=== PATIENT | male | born 1965 | race Caucasian/White ===

== ENCOUNTER 2016-09-08 02:31 | Emergency (ER) | payer OTHER ==
[2016-09-08 02:55] VITALS: BP 156/74; PULSE 75; RESP 16; TEMP 98.5; O2SAT 97
--- NOTE | 2016-09-08 04:09 | ED PDOC ---
HPI: Psych/Substance Abuse Time Seen by Provider: 09/08/16 02:43 Chief Complaint (Nursing): Psychiatric Evaluation Chief Complaint (Provider): Depression History Per: Patient History/Exam Limitations: no limitations Associated Symptoms: Depression. denies: Suicidal Thoughts Additional Complaint(s): Stephan Quintana, a 50 year old male, with a PMHx of depression presents to the ED for depression. The patient states that he verbalized feeling suicidal after being evicted from his apartment by his significant other. He states that now that he is now homeless and briefly felt like he should overdose. The patient has a Hx of having overdosed 4 years ago on 10 percocets. Denies homicidal/suicidal ideations. Patient states that she would like outpatient services for for mental health. Past Medical History Reviewed: Historical Data, Nursing Documentation, Vital Signs Vital Signs: Last Vital Signs Temp 98.5 F 09/08/16 02:47 Pulse 75 09/08/16 02:47 Resp 16 09/08/16 02:47 BP 156/74 H 09/08/16 02:47 Pulse Ox 97 09/08/16 02:47 - Medical History PMH: Anxiety, Arthritis, Asthma, Depression, HTN, Kidney Stones Other PMH: Back Pain - Surgical History Surgical History: Appendectomy - Family History Family History: States: Unknown Family Hx - Social History Current smoker - smoking cessation education provided: Yes - Immunization History Hx Tetanus Toxoid Vaccination: Yes - Home Medications Home Medications: Ambulatory Orders Medication Instructions Recorded Ciprofloxacin Hydrochloride [Cipro] 500 mg PO BID #10 tab 12/13/13 Tamsulosin [Flomax] 0.4 mg PO DAILY #10 cap 12/13/13 Tramadol Hydrochloride [Tramadol] 50 mg PO Q6 #10 tab 12/13/13 Tamsulosin [Flomax] 0.4 mg PO DAILY #14 cap 04/25/14 oxyCODONE/Acetaminophen [Percocet 1 tab PO Q6H PRN #20 tab 04/25/14 5/325 mg Tab] Clindamycin [Cleocin] 300 mg PO QID #40 cap 06/25/14 Methylprednisolone [Medrol] 4 mg PO TITR #1 unit 06/25/14 Oxycodone HCl/Acetaminophen 1 tab PO Q6H PRN #15 tab 06/25/14 [Percocet 325 mg-5 mg] Clindamycin [Cleocin] 300 mg PO QID #40 cap 12/03/15 - Allergies Allergies/Adverse Reactions: Allergies Allergy/AdvReac Type Severity Reaction Status Date / Time No Known Allergies Allergy Verified 06/25/14 12:41 Review of Systems ROS Statement: Except As Marked, All Systems Reviewed And Found Negative Psych: Positive for: Depression Physical Exam - Reviewed Nursing Documentation Reviewed: Yes Vital Signs Reviewed: Yes - Physical Exam Appears: Positive for: Non-toxic, No Acute Distress Head Exam: Positive for: ATRAUMATIC, NORMOCEPHALIC Skin: Positive for: Normal Color, Warm, Dry Eye Exam: Positive for: Normal appearance, EOMI, PERRL ENT: Positive for: Normal ENT Inspection Neck: Positive for: Normal, Painless ROM, Supple Cardiovascular/Chest: Positive for: Regular Rate, Rhythm, Chest Non Tender. Negative for: Tachycardia Respiratory: Positive for: Normal Breath Sounds. Negative for: Wheezing, Respiratory Distress Gastrointestinal/Abdominal: Positive for: Normal Exam, Soft. Negative for: Tenderness Back: Positive for: Normal Inspection Extremity: Positive for: Normal ROM. Negative for: Tenderness, Deformity, Swelling Neurologic/Psych: Positive for: Alert, Oriented - ECG O2 Sat by Pulse Oximetry: 97 (RA) Pulse Ox Interpretation: Normal Medical Decision Making Medical Decision Makin Initial Impression: Reactive depression in setting of homelessness Initial Plan: * Crisis Evaluation * Motrin Tab 600mg PO Patient evaluated by crisis and is ready for discharge. Patient has an appointment today with their new PMD Dr. Bustamante. Dx: Adjustment Disorder Condition: Stable __ Scribe Attestation Documented by Roxanna Geronimo acting as a scribe for Edenilson Hardin MD. Provider Attestation All medical record entries made by the Scribe were at my direction and personally dictated by me. I have reviewed the chart and agree that the record accurately reflects my personal performance of the history, physical exam, medical decision making, and the department course for this patient. I have also personally directed, reviewed, and agree with the discharge instructions and disposition Disposition - Clinical Impression Clinical Impression: Adjustment disorder - Disposition Referrals: Albina Bustamante MD [Primary Care Provider] - Disposition: Routine/Home Disposition Time: 04:10 Condition: STABLE Additional Instructions: FOLLOW UP WITH [facility] [address] [place] [address] Instructions: Stress (ED)
== END 2016-09-08 04:13 | disposition home or self-care (01) ==
LOC: H.ER 02:31
DX: F43.20 Adjustment disorder, unspecified (principal); F41.9 Anxiety disorder, unspecified; F32.9 Major depressive disorder, single episode, unspecified; F17.200 Nicotine dependence, unspecified, uncomplicated; I10 Essential (primary) hypertension; J45.909 Unspecified asthma, uncomplicated; Z59.0 Homelessness